=== PATIENT | male | born 1985 | race African-American/Black ===

== ENCOUNTER 2019-06-09 02:52 | Observation (INO) | payer MEDICAID ==
[2019-06-09] VITALS (10 sets, daily range): BP systolic 111–143; BP diastolic 59–82; Ht 185.4 cm; Wt 0.5 kg
[~2019-06-09] VITALS: Ht 185.4 cm; Wt 0.5 kg
--- NOTE | 2019-06-09 03:00 | NUR ---
POISON CONTROL RECOMMENDED KEEPING PATIENT TILL HE PASSES THE SPECIMEN DUE TO S/S THAT COULD OCCUR IF THE BAGGIE BREAKS. SUCH TACHYCARIDA,HYPERTHERMIA,AND HYPERTENTION. AND PT INFORMMED.
[2019-06-09 04:01] LABS: BASOPHILS 0.1 % (0-2); EOSINOPHILS 0.2 % (0-7); HEMATOCRIT 47.9 % (42.0-54.0); HEMOGLOBIN 15.9 g/dL (13.5-17.5); IMMATURE GRANULOCYTES 0.2 % (0-5); LYMPHOCYTES 25.3 % (15-50); MCHC 33.2 g/dL (31.0-37.0); MCV 93.4 fL (80.0-100.0); MEAN PLATELET VOLUME 10.8 fL (7.4-10.4); MONOCYTES 8.6 % (2-11); NEUTROPHILS 65.6 % (40-80); PLATELET COUNT 170 10x3/uL (130-400); RBC 5.13 10x6/uL (4.20-6.10); RDW 12.7 % (11.5-14.5); WBC 8.7 10x3/uL (4.8-10.8)
[2019-06-09 04:10] LABS: CALC OSMOLALITY 275 mosm/kg (275-300); CALCIUM 9.5 mg/dL (8.5-10.1); CHLORIDE - SERUM 100 mmol/L (98-107); CREATININE - SERUM 1.3 mg/dL (0.6-1.3); GLUCOSE 97 mg/dL (74-106); POTASSIUM - SERUM 3.9 mmol/L (3.5-5.1); SODIUM 137 mmol/L (136-145); UREA NITROGEN 18 mg/dL (7-18); eGFR NON AFRICAN AMERICAN 68 mL/min (90-120)
[2019-06-09 04:32] LABS: ALBUMIN 4.9 g/dL (3.4-5.0); ALKALINE PHOSPHATASE 90 U/L (30-120); ALT (SGPT) 20 U/L (10-68); BILIRUBIN - TOTAL 0.35 mg/dL (0.2-1.3); CREATINE KINASE 288 UL (21-232); MAGNESIUM - SERUM 2.4 mg/dL (1.8-2.4); PROTEIN - SERUM 8.8 g/dL (6.4-8.2)
[2019-06-09 04:33] LABS: CKMB 2.1 U/L (0.0-3.6)
[2019-06-09 06:12] LABS: BILIRUBIN NEGATIVE (NEGATIVE); GLUCOSE NEGATIVE (NEGATIVE); KETONE LARGE mg/dL (NEGATIVE); NITRITE NEGATIVE (NEGATIVE); SPECIFIC GRAVITY 1.025 (1.005-1.020); UROBILINOGEN NORMAL (NORMAL)
--- NOTE | 2019-06-09 06:13 | NUR ---
RECEIVED FROM ER, A&OX4, PLACED ON [id number], WHEN ENTER ROOM PT WENT IN BATHROOM USED URINAL, BUT HERE TOILET FLUSH, EXPLAIN HE NEEDS TO USE BSC SO WE CAN SEE IF BAG PASSES, BED IS LOW, SRX2, CALL LIGHT IN REACH, WILL CONTINUE PLAN OF CARE
[2019-06-09 06:14] LABS: BACTERIA FEW /hpf (NEGATIVE); RED CELLS - URINE RARE /hpf (0-5); WHITE CELLS - URINE 0-5 /hpf (NEGATIVE)
[2019-06-09 06:28] LABS: UDS - AMPHET NEGATIVE QUAL (NEGATIVE); UDS - BARB NEGATIVE QUAL (NEGATIVE); UDS - BENZO NEGATIVE QUAL (NEGATIVE); UDS - COCAINE POSITIVE QUAL (NEGATIVE); UDS - OPIATE NEGATIVE QUAL (NEGATIVE); UDS - PCP NEGATIVE QUAL (NEGATIVE); UDS - THC NEGATIVE QUAL (NEGATIVE)
--- NOTE | 2019-06-09 07:20 | NUR ---
RECIEVE REPORT. ALERT AND ORIENTED X4. TAKEN TO MEDICAL IMAGING VIA WHEELCHAIR. CONTINUE PLAN OF CARE AND SAFETY PRECAUTIONS.
--- NOTE | 2019-06-09 19:15 | NUR ---
RECEIVED REPORT, WILL ASSUME CARE OF PT, PT SAYS HE IS JUST READY TO GO HOME, EXPLAINED HE WOULD HAVE TO SIGN OUT AMA, HE ASK WHAT THAT WAS, EXPLAIN, THEN ASK WHEN HE WOULD BE DISCHARGED, EXPLAIN HE NEEDS TO PASS BAG, HE SAID HE HAS WENT BM X2, BUT NOTHING WAS THERE, ASK IF HE SHOWED NURSE, HE SAID NO, BED IS LOW, SRX2, CALL LIGHT IN REACH, WILL CONTINUE PLAN OF CARE
--- NOTE | 2019-06-09 21:37 | NUR ---
PT JUST PASS PLASTIC BAG WITH SUBSTANCES IN IT
--- NOTE | 2019-06-09 22:00 | NUR ---
SPOKE WITH DR. ASH, RECEIVED DISCHARGE ORDERS, WAS GOING TO PLACE SUBSTANCE IN BIO HAZARD BAG TO DISPOSE OF, BUT PT FLUSED DOWN TOILET, REMOVED IV AND TELEMRY, PT TAKEN TO ER EXIT VIA WHEELCHAIR, DISCHARGED HOME WITH FAMILY
== END 2019-06-09 22:44 | disposition home or self-care (01) ==
LOC: D.ER 02:52 → D.M2 04:17 → OBSVTIME 04:17 → D.M2 22:44
PROVIDERS: Emergency Medicine; ADMIT Internal Medicine Nephrology; ATTEND Internal Medicine Nephrology
DX: S27.818A Other injury of esophagus (thoracic part), initial encounter (principal); X58.XXXA Exposure to other specified factors, initial encounter; T18.198A Other foreign object in esophagus causing other injury, initial encounter; F17.203 Nicotine dependence unspecified, with withdrawal; F14.10 Cocaine abuse, uncomplicated

== ENCOUNTER 2020-04-24 07:09 | Day surgery (SDC) | payer OTHER ==
[~2020-04-24] VITALS: Ht 185.4 cm; Wt 90.7 kg
[~2020-04-24 07:09] MED LIST: COLCRYS0.6 MG PO; INDOCIN25 MG PO; NICODERM CQ1 EAC3 TRANSDERM; OMEPRAZOLE CAP 20M PO; PEPCID40 MG PO; PROMETHAZINE W473 ML PO; PROTONIX40 MG PO
[2020-04-24 07:57] VITALS: BP 151/65; Ht 185.4 cm; Wt 90.7 kg
--- NOTE | 2020-04-24 13:35 | NUR ---
PIV DC'D WITH TIP INTACT. PATIENT AMBULATING AROUND ROOM WITHOUT UNSTEADINESS OR DIZZINESS. ARM SLING IN PLACE. DISCHARGE INSTRUCTIONS REVIEWED WITH PATIENT, DISCHARGED HOME VIA WHEELCHAIR TO PRIVATE VEHICLE WITH SPOUSE
--- NOTE | 2020-04-25 08:22 | OP ---
PATIENT NAME: NOHEMY DOBBINS MEDICAL RECORD: [id number] :87 LOCATION:D.OPS ADMISSION DATE: SURGEON: ESHA RIVERA DO DATE OF OPERATION: 04/24/2020 PROCEDURE PERFORMED: 1. Right shoulder arthroscopy with capsular shift. 2. Loose body removal. PREOPERATIVE DIAGNOSIS: Loose body, right shoulder and chronic instability. POSTOPERATIVE DIAGNOSIS: Loose body, right shoulder and chronic instability. INDICATIONS: Mr. Dobbins is a 34-year-old male who has had several dislocations of the right shoulder. He said too many to count, it started when he was much younger. Never had surgery on this before started. He started dealing with it. 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 I informed him that we would try to do this and he did not have a Hill-Sachs lesion luckily, but we told him we would do a capsular shift and see if we can get this to keep from dislocating. If that did not work, the next step would be a Latarjet. He was okay with that. He is aware of the risks of this procedure including infection, bleeding, damage to the axillary nerve or other nerves in the area, continued pain, redislocation, loss of motion of the shoulder, infection of bleeding and he signed the consent. SURGEON: Esha Rivera DO DESCRIPTION OF THE PROCEDURE: The patient received a block by anesthesia in preoperative area and taken to the operative suite, laid in the left lateral decubitus position with the right shoulder up, sedated and LMA was placed. The right shoulder was then prepped and draped in sterile fashion. A time-out was performed. Everyone was in agreeance with correct, side, site, the patient, and procedure. He received 900 mg clindamycin preoperatively. After the timeout had been performed, I then inflated the shoulder joint with 60 mL of normal saline through the posterior portal an 18-gauge spinal needle. I then established a portal with 11 blade scalpel, trocar then entered the joint. I then established an anterior portal with an 18-gauge spinal needle 11-blade scalpel. A trocar was then entered in and the cannula as well. I noted the grade IV chondromalacia on the glenoid at the anterior aspect of it. He also had a large loose body in the inferior gutter. I brought in a grasper and grasped out the loose body and then brought the cannula back in. I then used a Dover and freed up the anterior edge of the glenoid, freeing up the capsule. I then brought in a suture passer to pass nitinol wire grabbed a big bite of the inferior portion of the capsule and advance the nitinol wire. I then grasped the other end of the nitinol wire that went through the capsule and grabbed a FiberTape stitch and brought it back through. I then drilled a hole in the anterior face of the glenoid at about the 5 o'clock position and passed the suture through the anchor and put the anchor into the hole that we had drilled. I pulled up the capsule nicely to the 5 o'clock position. I then cut it. I then repeated this process at the 4 o'clock and 3 o'clock position, early 2:30 position, putting in 3 anchors total, making a nice bumper of the capsule and a good shift. The shoulder was centered on the glenoid the humeral head was. I then tested it and it was very secure. I then turned the suction on water off OPERATIVE REPORT [id number] NOHEMY DOBBINS and fluids off and removed the trocars. Claudine Jacobo, certified physician assistant then closed 4-0 Monocryl in inverted interrupted fashion in the portal sites. We then dressed with Dermabond and Telfa and Tegaderm. Put in sling, awakened, and taken to recovery in stable condition. BLOOD LOSS: Minimal. COMPLICATIONS: None. TRANSINT:[id number] Voice Confirmation ID: [id number] DOCUMENT ID: [id number] ESHA RIVERA DO at 0822 CC: [id number] DICTATION DATE: 04/24/207 MEDICARE CONTACT SPECIALIST: 04/24/20 2320 [facility] 04/24/20 [id number] [place] [address]
== END 2020-04-24 13:35 | disposition home or self-care (01) ==
LOC: D.OPS 07:09
PROVIDERS: ATTEND Orthopaedic Surgery
DX: M25.311 Other instability, right shoulder (principal); M24.011 Loose body in right shoulder; M25.511 Pain in right shoulder; S49.90XA Unspecified injury of shoulder and upper arm, unspecified arm, initial encounter

== ENCOUNTER 2020-06-23 14:24 | Emergency (ER) | payer OTHER ==
[~2020-06-23] VITALS: Ht 185.4 cm; Wt 81.8 kg
[2020-06-23 14:26] VITALS: Ht 185.4 cm; Wt 81.8 kg
[2020-06-23 14:45] LABS: BASOPHILS 0.2 % (0-2); EOSINOPHILS 0.7 % (0-7); HEMATOCRIT 44.4 % (42.0-54.0); HEMOGLOBIN 15.2 g/dL (13.5-17.5); LYMPHOCYTE ABS# 2.03 10x3/uL (1.32-3.57); LYMPHOCYTES 44.9 % (15-50); MCH 30.6 pg (26.0-34.0); MCHC 34.2 g/dL (31.0-37.0); MCV 89.5 fL (80.0-100.0); MEAN PLATELET VOLUME 11.6 fL (7.4-10.4); NEUTROPHIL ABS# 2.09 10x3/uL (1.78-5.38); NEUTROPHILS 46.2 % (40-80); PLATELET COUNT 189 10x3/uL (130-400); RBC 4.96 10x6/uL (4.20-6.10); RDW 12.6 % (11.5-14.5); WBC 4.5 10x3/uL (4.8-10.8)
[2020-06-23 14:56] LABS: APTT 30.6 SECONDS (22.8-39.4); INR 1.11 (0.85-1.17); PROTIME 13.3 SECONDS (11.6-15.0)
[2020-06-23 15:18] LABS: CALC OSMOLALITY 273 mosm/kg (275-300); CALCIUM 9.6 mg/dL (8.5-10.1); CARBON DIOXIDE 20.4 mmol/L (21.0-32.0); CHLORIDE - SERUM 103 mmol/L (98-107); CREATININE - SERUM 1.1 mg/dL (0.6-1.3); GLUCOSE 119 mg/dL (74-106); POTASSIUM - SERUM 3.6 mmol/L (3.5-5.1); SODIUM 137 mmol/L (136-145); UREA NITROGEN 11 mg/dL (7-18); eGFR NON AFRICAN AMERICAN 82 mL/min (90-120)
[2020-06-23 15:59] LABS: ALBUMIN 4.5 g/dL (3.4-5.0); ALKALINE PHOSPHATASE 82 U/L (30-120); ALT (SGPT) 23 U/L (10-68); BILIRUBIN - TOTAL 0.49 mg/dL (0.2-1.3); CKMB 1.8 U/L (0.0-3.6); CREATINE KINASE 267 UL (21-232); MAGNESIUM - SERUM 2.1 mg/dL (1.8-2.4); PROTEIN - SERUM 8.2 g/dL (6.4-8.2); TROPONIN-I < 0.017 ng/mL (0.000-0.060)
[2020-06-23 16:25] VITALS: BP 118/73
== END 2020-06-23 16:25 | disposition home or self-care (01) ==
LOC: D.ER 14:24
PROVIDERS: Family Medicine
DX: R07.89 Other chest pain (principal); R42 Dizziness and giddiness; K21.9 Gastro-esophageal reflux disease without esophagitis